=== PATIENT | male | born 1990 | race Caucasian/White ===

== ENCOUNTER 2017-02-25 05:14 | Emergency (ER) | payer OTHER ==
[~2017-02-25] VITALS: Ht 172.7 cm; Wt 59.0 kg
[2017-02-25 05:36] VITALS: BP 118/76
[2017-02-25] MEDS ORDERED: Lidocaine 2% Visc 15ml soln ORAL ONE (06:00)
[2017-02-25] MEDS ORDERED: Dicyclomine HCl 10mg/5ml oral soln ORAL ONE (06:00)
[2017-02-25] MEDS ORDERED: Mylanta II UD 30ml ORAL ONE (06:00)
--- NOTE | 2017-02-25 06:06 | Emergency Room Report ---
History of Present Illness General Chief Complaint: Abdominal Pain Source: Patient (Sukhi Hutson M.D.) Present Illness HPI 27-year-old male with history of GERD p/w abdominal pain for 3-4 days. Patient states pain started gradually, localized to bilateral lower quadrants, non radiating, burning in nature, intermittent. Patient states that it is relieved when lying prone. Severity is 5/10. Denies nausea or vomiting, 3-4 episodes of watery non bloody diarrhea per day Denies fever, chills. No hx of endoscopies/colonoscopies. no recent abx use (Sukhi Hutson M.D.) Allergies: Coded Allergies: No Known Allergies (Unverified , 02/25/17) Patient History Past Medical History: see triage record Past Surgical History: none Pertinent Family History: none Reviewed Nursing Documentation: PMH: Agreed, PSxH: Agreed (Sukhi Hutson M.D. ) Review of Systems All Other Systems: negative except mentioned in HPI (Sukhi Hutson M.D.) Physical Exam Vital Signs Date Time Temp Pulse Resp B/P (MAP) Pulse Ox O2 Delivery O2 Flow Rate FiO2 02/25/17 05:22 98.1 90 16 118/76 98 Room Air Sp02 EP Interpretation: reviewed, normal General Appearance: alert, GCS 15, non-toxic, mild distress Head: normocephalic, atraumatic Eyes: bilateral eye normal inspection, bilateral eye PERRL, bilateral eye EOMI ENT: normal ENT inspection, normal pharynx, normal voice, moist mucus membranes Neck: normal inspection, full range of motion, supple Respiratory: normal inspection, lungs clear, normal breath sounds, no respiratory distress, no retraction, no wheezing, speaking full sentences, chest symmetrical Cardiovascular #1: normal inspection, regular rate, rhythm, no edema, normal capillary refill Cardiovascular #2: 2+ radial (R), 2+ radial (L) Gastrointestinal: normal inspection, non tender, soft, non-distended, no guarding, other - nontender ALL quadrants on abdomen Genitourinary: no CVA tenderness Musculoskeletal: normal inspection, back normal, normal range of motion, non- tender Neurologic: normal inspection, alert, oriented x3, responsive, motor strength/ tone normal, sensory intact, normal gait, speech normal Psychiatric: normal inspection, judgement/insight normal, memory normal Skin: normal inspection, normal color, no rash, warm/dry, well hydrated, normal turgor (Sukhi Hutson M.D.) Medical Decision Making Diagnostic Impression: Primary Impression: Abdominal pain ER Course 27-year-old male with abdominal pain Differential Diagnosis: Gastritis, gastroenteritis, UTI/pyelo At this time abdomen is soft nontender all quadrants, not likely to have acute intra-abdominal surgical pathology, such as appendicitis, cholecystitis, will hold CT for now. Plan: Basic labs, ua Pepcid, maalox, pain control, IVF ER course: Patient given IV fluids, GI cocktail Disposition: Signed out patient to Dr. Capps 27-year-old male with abdominal pain Pending remaining labs Pending symptom control Please note that this Emergency Department Report was dictated using [employer] family mediator technology software, occasionally this can lead to erroneous entry secondary to interpretation by the dictation equipment (Sukhi Hutson M.D.) ER Course Patient endorsed to me by Dr. Hutson. Laboratory studies were unremarkable.A repeat exam continues to be benign. The patient has nonsurgical abdomen. The patient was given a prescription for Bentyl. The patient is advised to follow up with primary care doctor in 1-2 days. Patient is advised to return if any worsening condition or if any changes in status that are concerning. (Jorge Capps) Last Vital Signs Date Time Temp Pulse Resp B/P (MAP) Pulse Ox O2 Delivery O2 Flow Rate FiO2 02/25/17 05:36 98.1 88 20 118/76 98 Room Air (Sukhi Hutson M.D.) Status: improved (Jorge Capps) Disposition: HOME, SELF-CARE Condition: Stable Scripts Dicyclomine Hcl* (BENTYL*) 10 Mg Capsule 10 MG ORAL FOUR TIMES A DAY, #20 CAP Prov: Jorge Capps 02/25/17 Referrals: Davis Brown MD (PCP) Sukhi Hutson M.D. Feb 25, 2017 06:06 Jorge Capps Feb 25, 2017 06:43
[2017-02-25 06:20] LABS: APPEARANCE,URINE CLEAR; BILIRUBIN, URINE NEGATIVE (NEGATIVE); EOSINOPHILS % (AUTO) 0.6 % (0.0-3.0); GLUCOSE, URINE (UA) NEGATIVE (NEGATIVE); HEMATOCRIT 50.9 % (42.0-52.0); KETONES,URINE NEGATIVE (NEGATIVE); LEUKOCYTE ESTERASE ,URINE NEGATIVE (NEGATIVE); LYMPHOCYTES % (AUTO) 18.9 % (20.0-45.0); MEAN CORPUSCULAR VOLUME 86 FL (80-99); MONOCYTES % (AUTO) 6.5 % (1.0-10.0); NITRITE,URINE NEGATIVE (NEGATIVE); PH,URINE 7 (4.5-8.0); PLATELET COUNT 230 K/UL (150-450); PROTEIN,URINE NEGATIVE (NEGATIVE); RED BLOOD COUNT 5.89 M/UL (4.70-6.10); RED CELL DISTRIBUTION WIDTH 11.4 % (11.6-14.8); UROBILINOGEN,URINE NORMAL MG/DL (0.0-1.0); WHITE BLOOD COUNT 10.2 K/UL (4.8-10.8)
[2017-02-25 06:24] LABS: COLOR,URINE YELLOW
[2017-02-25 06:34] LABS: ALANINE AMINOTRANSFERASE 25 U/L (12-78); ALBUMIN 4.6 G/DL (3.4-5.0); ALBUMIN/GLOBULIN RATIO 1.3 (1.0-2.7); ALKALINE PHOSPHATASE 67 U/L (46-116); ANION GAP 7 mmol/L (5-15); ASPARTATE AMINO TRANSFERASE 20 U/L (15-37); BILIRUBIN,TOTAL 0.3 MG/DL (0.2-1.0); BLOOD UREA NITROGEN 11 mg/dL (7-18); CALCIUM 10.6 MG/DL (8.5-10.1); CARBON DIOXIDE 32 MMOL/L (21-32); CHLORIDE 102 MMOL/L (98-107); CREATININE 1.1 MG/DL (0.55-1.30); SODIUM 140 MMOL/L (136-145)
[2017-02-25] MEDS ORDERED: BENTYL10 MG ORAL (06:51)
[2017-02-25 06:58] VITALS: BP 121/70
== END 2017-02-25 07:00 | disposition home or self-care (01) ==
LOC: EMR 05:57
DX: R10.31 Right lower quadrant pain (principal); R10.32 Left lower quadrant pain; K21.9 Gastro-esophageal reflux disease without esophagitis
CPT/HCPCS: 36415; 80053; 81003; 83690; 85025; 96374; 96375; 99284; S0028